=== PATIENT | male | born 1980 | race Caucasian/White ===

== ENCOUNTER 2019-04-21 22:16 | Emergency (ER) | payer BC ==
[~2019-04-21] VITALS: Ht 180.3 cm; Wt 109.8 kg
[2019-04-21 22:20] VITALS: BP_SYST 147
[2019-04-22] MEDS: IPRATROPIUM/ALBUTEROL SULFATE 3 ML AMPUL.NEB (DUONEB) INH ONE (00:22)
[2019-04-22 00:35] LABS: BASOPHILS # (AUTO) 0.1 K/uL (0.0-0.2); MONOCYTES # (AUTO) 0.5 K/uL (0.0-1.0)
[2019-04-22 00:49] LABS: CALCIUM 8.5 mg/dL (8.4-11.0); CREATININE 1.01 mg/dL (0.55-1.30); POTASSIUM 3.8 mmol/L (3.5-5.1)
[2019-04-22 00:50] LABS: EOSINOPHILS # (AUTO) 0.4 K/uL (0.0-0.4); EOSINOPHILS % (AUTO) 5.8 % (0.0-4.0); HEMATOCRIT 42.8 % (36-54); HEMOGLOBIN 13.7 g/dL (14.0-18.0); LYMPHOCYTES # (AUTO) 1.6 K/uL (1.0-5.5); LYMPHOCYTES % (AUTO) 23.6 % (20.5-51.5); MEAN CORPUSCULAR HEMOGLOBIN 18 pg (27-31); MEAN CORPUSCULAR HGB CONC 32 % (32-36); MEAN CORPUSCULAR VOLUME 57 fL (79.0-98.0); MONOCYTES % (AUTO) 7.1 % (1.7-9.3); NEUTROPHILS # (AUTO) 4.3 K/uL (1.8-7.7); NEUTROPHILS % (AUTO) 62.5 % (40.0-70.0); RED BLOOD CELL COUNT(AUTO) 7.55 MIL/uL (4.2-6.2); RED CELL DISTRIBUTION WIDTH 18.9 % (9.0-15.0); WHITE BLOOD COUNT (AUTO) 6.9 K/uL (4.8-10.8)
[2019-04-22 00:53] LABS: ALBUMIN 3.2 g/dL (3.4-4.8); PROTHROMBIN TIME 9.9 SECS (9.5-12.5); TOTAL BILIRUBIN 0.9 mg/dL (0.0-1.0)
[2019-04-22] MEDS: NACL 0.9% 1,000 ML IV ONE ×2 (01:10→03:11)
[2019-04-22 01:11] LABS: PLATELET COUNT (AUTO) 298 K/uL (130-430)
[2019-04-22] MEDS: INSULIN REGULAR, HUMAN 10 UNITS/0.1 ML INJ IVP ONE (03:17)
[2019-04-22] MEDS: AZITHROMYCIN 250 MG TABLET PO ONE (03:18)
[2019-04-22 04:20] VITALS: BP_SYST 128
== END 2019-04-22 04:20 | disposition home or self-care (01) ==
LOC: SED 22:16
DX: R06.02 Shortness of breath (principal); R05 Cough; R42 Dizziness and giddiness; E11.9 Type 2 diabetes mellitus without complications; F12.90 Cannabis use, unspecified, uncomplicated
CPT/HCPCS: 36415; 71045; 80053; 82962; 83880; 84295; 84484; 85025; 85379; 85610; 85730; 93005; 94640; 96361; 96374; 99285; J1815; J7030; Q0144